=== PATIENT | female | born 1975 | race Caucasian/White ===

== ENCOUNTER 2020-03-07 16:13 | Emergency (ER) | payer BC, SELFPAY ==
[2020-03-07 16:50] VITALS: BP 133/64; PULSE 69; RESP 20; TEMP 36.7; O2SAT 98
--- NOTE | 2020-03-07 16:58 | HMH.EDUTC ---
[facility] Disposition Clinical Impression: Suspected COVID-19 virus infection Fever Qualifiers: Fever type: unspecified Qualified Code(s): R50.9 - Fever, unspecified Disposition: Home, Self-Care Condition on Discharge: Good Instructions: Preventing the Spread of Coronavirus Discharge Instructions Referrals: Martha Kearney [Primary Care Provider] - Forms: Work/School Release Time of Disposition: 17:01 Medical Decision Making - Agustin Inquiry Pt receiving controlled substance: No Vital Signs: 03/07/20 16:50 Temperature 98.1 F Temperature Source Oral Pulse Rate [Right Brachial] 69 Respiratory Rate 20 Blood Pressure [Right Arm] 133/64 Blood Pressure Mean [Right Arm] 87 Blood Pressure Source [Right Arm] Automatic Cuff Blood Pressure Position [Right Arm] Sitting 02 Sat by Pulse Oximetry 98 Oxygen Delivery Method Room Air Orders (Tests/Meds): ORDERS Category Date Time Status SARS-CoV-2, MATT Stat Lab 03/07/20 16:50 Ordered [facility] HPI - General Chief complaint: Urgent [facility] Stated complaint: covid test request Time Seen by Provider: 03/07/20 16:58 Mode of Arrival: Ambulatory Source of Information: Patient Limitations: No Limitations Description of Symptoms (Recalled from Triage Doc. by RN): fever HEENT Symptoms (Recalled from RN notes): No Resp Symptoms (Recalled from RN notes): No Skin Symptoms (Recalled from RN notes): No MS Symptoms (Recalled from RN notes): No Functional Status (Recalled from RN notes): none - History of Present Illness Provider Complaint: 44 yr old female presents for low grade fever 99.7 for 2 days. pt states no other symptoms - Related Data Previous Rx's Medication Instructions Recorded Etodolac [Etodolac 200mg Cap] 200 mg PO BID PRN #40 cap 02/09/18 Allergies Allergy/AdvReac Type Severity Reaction Status Date / Time No Known Allergies Allergy Verified 02/09/18 12:32 - Worker's Comp Is this a Worker's Comp case?: No [facility] History - Hepatitis A Screen Drug use history?: No High risk sexual behaviors?: No History of sexually transmitted infection?: No Currently employed?: No Childcare worker?: No Do you have indoor plumbing?: No Do you have electricity?: Yes Attestation statement:: This patient has been screened for Hepatitis A risk factors. I have reviewed the patient's past medical history: Yes Medical History: Reports:: Cancer Denies:: Diabetes Mellitus Type 1, Diabetes Mellitus Type 2, Internal Pacemaker, MRSA Other Surgeries: No: Pacemaker Amputation: No Fractures: No - Social History Smoking Status: Current every day smoker Tobacco Type: cigarettes # Packs/Day (cigarettes): 1 Alcohol Intake: never Occupational Status: employed ROS Obtained: Yes Systems reviewed as appropriate & no additional complaints - Constitutional Constitutional: Reports system reviewed and no additional complaints, except as docu, Reports fever(s) - Eyes Eyes: Reports system reviewed and no additional complaints, except as docu - ENT Ears, Nose, Mouth, and Throat: Reports system reviewed and no additional complaints, except as docu, Denies nasal congestion, Denies sore throat - Cardiovascular Cardiovascular: Reports system reviewed and no additional complaints, except as docu, Denies chest pain - Respiratory Respiratory: Yes system reviewed and no additional complaints, except as docu, No chest congestion - Gastrointestinal Gastrointestingal: Reports: system reviewed and no additional complaints, except as docu. Denies: nausea, vomiting - Musculoskeletal Musculoskeletal: Reports system reviewed and no additional complaints, except as docu, Denies joint pain - Integumentary/Breasts Skin/Breast: Reports system reviewed and no additional complaints, except as docu, Denies rash - Neurologic Neurologic: Reports system reviewed and no additional complaints, except as docu, Denies lack of coordination - Endocrine Endocrine: Reports
[2020-03-07 17:16] VITALS: BP 133/64; PULSE 69; RESP 20; TEMP 36.7; O2SAT 98
[2020-03-09 13:36] LABS: Covid-19 Nasal PCR Sendout Lex NOT DETECTED
== END 2020-03-07 17:20 | disposition home or self-care (01) ==
PROVIDERS: Emergency Provider Nurse Practitioner Family; PCP Nurse Practitioner Family
DX: Z20.828 Contact with and (suspected) exposure to other viral communicable diseases (principal); R50.9 Fever, unspecified; J45.909 Unspecified asthma, uncomplicated; F41.9 Anxiety disorder, unspecified; F17.210 Nicotine dependence, cigarettes, uncomplicated; Z85.41 Personal history of malignant neoplasm of cervix uteri
CPT/HCPCS: 99201; U0004

== ENCOUNTER 2020-05-07 18:33 | Emergency (ER) | payer BC, SELFPAY ==
[2020-05-07 18:40] VITALS: BP 128/84; PULSE 76; RESP 16; TEMP 37.1; O2SAT 99; BMI 29.8
--- NOTE | 2020-05-07 18:59 | CT_ITS ---
PROCEDURE: CT ABDOMEN PELVIS W CON CLINICAL INDICATION: abd pain Lower abdominal pain COMPARISON: No exams were available for comparison TECHNIQUE: IV Contrast: 75ML OPTIRAY 350 Oral Contrast None Axial images obtained with sagittal and coronal reformats. All CT scans at the facility use one or more dose reduction, viz: automated exposure control, ma/kV adjustment per patient size (including targeted exams where dose is matched to indication, i.e. head), or iterative reconstruction technique. FINDINGS: LOWER THORAX: Minimal atelectatic or fibrotic change in the left lung base. There is some asymmetric density in the lateral aspect of the right breast. Suggest mammogram and possibly ultrasound for further evaluation ABDOMEN & PELVIS: Prior cholecystectomy. The liver, the spleen, adrenal glands, pancreas, and kidneys have an unremarkable appearance. No intestinal obstruction or free air. No evidence of appendicitis. No pelvic mass or abnormal fluid collection. No evidence of diverticulitis. There are tubal ligation clips present in the left adnexa and along the anterior aspect of the uterus. The uterus has a somewhat heterogeneous density with a hyperdensity along the uterine fundus at 11 mm. No acute bony anomaly. IMPRESSION: 1. Nonspecific uterine nodularity with heterogeneous density of the uterus. Fibroid involving is considered and pelvic ultrasound may confirm. 2. No acute abdominal findings. 3. Asymmetric breast density on the right. Mammography and ultrasound may provide further evaluation. Dictated by: Aryan Fields MD 05/08/2020 06:02 Aryan Fields MD in [place] 05/08/2020 06:02
[2020-05-07 19:04] VITALS: BP 122/87; PULSE 75; RESP 20; O2SAT 96
[2020-05-07 19:04] LABS: Microscopic, Urine URINE MICROSCOPIC (MICROSCOPIC)
[2020-05-07 19:07] LABS: Appearance,Urine CLEAR (Clear); Bilirubin,Urine Negative (Negative); Blood, Urine 3+ (Negative); Color,Urine YELLOW (Yellow); Glucose,Urine (UA) Negative (Negative); Ketones,Urine Negative (Negative); Leukocyte Esterase,Urine Negative (Negative); Nitrate,Urine Negative (Negative); Protein,Urine Negative (Negative); Urobilinogen,Urine 0.2 EU/dl (0.2)
--- NOTE | 2020-05-07 19:08 | PC.NURSE ---
received report from day nurse
[2020-05-07 19:15] LABS: Urine Pregnancy, HCG Qual. Negative (Negative)
[2020-05-07 19:32] VITALS: BP 137/88; PULSE 71; RESP 16; O2SAT 97
--- NOTE | 2020-05-07 19:34 | HMH.EDGENADL ---
ED Disposition Condition on Discharge: Good - Critical Care Critical Care Time: No <Peterson Rollins - Last Filed: 05/07/20 20:13> <Jared Lopez - Last Filed: 05/07/20 21:00> Clinical Impression: Epigastric abdominal pain, Periumbilical abdominal pain Disposition: Home, Self-Care Instructions: DI for Acute Pain -- Adult Additional Instructions: call pcp in am Referrals: Martha Kearney [Primary Care Provider] - Attestation: On 05/07/20, the high probability of a clinically significant, sudden or life threatening deterioration of the following system(s) required my full and direct attention, intervention and personal management. The time I documented below is in addition to time spent performing reported procedures but includes the following listed in this critical care notation. Medical Decision Making - Agustin Inquiry Pt receiving controlled substance: No Reference #:: [id number] Comment: 0 rxs. - Lab Data Result diagrams: 05/07/20 18:55 05/07/20 18:55 <Peterson Rollins - Last Filed: 05/07/20 20:13> - Lab Data Lab results reviewed: Yes: I reviewed the patient's lab results. Result diagrams: 05/07/20 18:55 05/07/20 18:55 - CT Data CT Scan: Abdomen, Pelvis Time Received: 20:[address] Reviewed: Yes: I have viewed the radiologist's interpretation Preliminary Findings: Normal/NAD <Jared Loepz Estrellita - Last Filed: 05/07/20 21:00> Vital Signs: 05/07/20 18:40 05/07/20 19:04 05/07/20 19:32 Temperature 98.8 F Temperature Source Oral Pulse Rate [Right Radial] 76 75 71 Respiratory Rate 16 20 16 Blood Pressure [Right Arm] 128/84 122/87 137/88 Blood Pressure Mean [Right Arm] 98 98 104 Blood Pressure Source [Right Arm] Automatic Cuff Automatic Cuff Blood Pressure Position [Right Arm] Sitting Sitting 02 Sat by Pulse Oximetry 99 96 97 Oxygen Delivery Method Room Air Room Air 05/07/20 20:37 Temperature Temperature Source Pulse Rate [Right Radial] 73 Respiratory Rate 18 Blood Pressure [Right Arm] 118/75 Blood Pressure Mean [Right Arm] 89 Blood Pressure Source [Right Arm] Blood Pressure Position [Right Arm] 02 Sat by Pulse Oximetry 98 Oxygen Delivery Method Room Air - Lab Data Lab Results 05/07/20 18:50: Urine Color Yellow, Urine Appearance Clear, Urine pH 7.0, Ur Specific [place] 1.010, Urine Protein Negative, Urine Glucose (UA) Negative, Urine Ketones Negative, Urine Blood 3+, Urine Nitrate Negative, Urine Bilirubin Negative, Urine Urobilinogen 0.2, Ur Leukocyte Esterase Negative, Urine RBC 10-20, Ur Squamous Epith Cells 5-10 05/07/20 18:50: Urine HCG, Qual Negative 05/07/20 18:55: WBC 10.8, RBC 4.35, Hgb 14.3, Hct 40.6, MCV 93.3, MCH 32.9 H, MCHC 35.3, RDW 13.0, Plt Count 278, MPV 8.8, Neut % (Auto) 64.4, Lymph % (Auto) 29.5, [place] % (Auto) 4.9, Eos % (Auto) 0.7, Baso % (Auto) 0.5, Neut # (Auto) 6.9, Lymph # (Auto) 3.2, [place] # (Auto) 0.5, Eos # (Auto) 0.1, Baso # (Auto) 0.1 05/07/20 18:55: Sodium 142, Potassium 3.9, Chloride 103, Carbon Dioxide 32 H, Anion Gap 10.9, BUN 11, Creatinine 0.60, Estimated Creat Clear 152, Estimated GFR 110, Est GFR ( Amer) 133, Glucose 104 H, Calcium 10.2, Total Bilirubin 0.3, AST 28, ALT 20, Alkaline Phosphatase 78, Total Protein 8.5 H, Albumin 4.8, Globulin 3.7 H, Albumin/Globulin Ratio 1.3 05/07/20 18:55: Amylase 69, Lipase 119 Orders (Tests/Meds): ED MEDICATIONS Discontinued Medications Generic Name Dose Route Start Last Admin Trade Name Freq PRN Reason Stop Dose Admin Ioversol 75 ml 05/07/20 20:05 05/07/20 20:07 Rad-Optiray 350 100ml Vial IV 05/07/20 20:06 75 ml ONCE ONE Administration Protocol Ketorolac Tromethamine 30 mg 05/07/20 20:04 05/07/20 20:07 Toradol 30mg/Ml Vial IV 09/27/20 20:05 30 mg ONCE ONE Administration Sodium Chloride 10 ml 05/07/20 20:05 05/07/20 20:07 Rad-Saline Flush 10ml Syringe IV 05/07/20 20:06 10 ml ONCE ONE Administration ORDERS Category Date Time S
[2020-05-07 19:52] LABS: Basophils # 0.1 K/mm3 (0-0.2); Basophils % 0.5 % (0.1-2.0); Eosinophils # 0.1 K/mm3 (0.0-0.4); Eosinophils % 0.7 % (0.1-12.0); Hematocrit 40.6 % (37.0-47.0); Hemoglobin 14.3 g/dL (12.2-16.2); Lymphocytes # 3.2 K/mm3 (0.7-4.5); Lymphocytes % 29.5 % (10-50); Mean Corpuscular HGB Conc 35.3 g/dL (31.8-35.4); Mean Corpuscular Hemoglobin 32.9 pg (27.0-31.2); Mean Corpuscular Volume 93.3 fl (81-99); Mean Platelet Volume 8.8 fl (7.4-10.4); Monocytes # 0.5 K/mm3 (0.1-1.0); Monocytes % 4.9 % (1.7-9.3); Neutrophils # 6.9 K/mm3 (1.8-7.8); Neutrophils % 64.4 % (37.0-80.0); Platelet Count 278 K/mm3 (142-424); Red Blood Count 4.35 M/mm3 (4.20-5.40); White Blood Count 10.8 K/mm3 (4.8-10.8)
[2020-05-07 19:59] LABS: Alanine Aminotransferase 20 U/L (12-78); Albumin Level 4.8 g/dl (3.5-5.0); Albumin/Globulin Ratio 1.3 (1.1-1.8); Alkaline Phosphatase 78 U/L (38-126); Anion Gap 10.9 mEq/L (5-15); Aspartate Amino Transferase 28 U/L (14-36); Bilirubin,Total 0.3 mg/dl (0.2-1.3); Blood Urea Nitrogen 11 mg/dl (7-17); Calcium 10.2 mg/dl (8.4-10.2); Carbon Dioxide 32 mmol/L (22.0-30.0); Chloride 103 mmol/L (98-107); Creatinine Clearance Estimated 152 mL/min (50-200); Estimated Glomerular Filt Rate 110 ml/min (>60); GFR (African American) 133 ML/MIN (>60); Globulin 3.7 g/dL (1.3-3.2); Glucose 104 mg/dl (74-100); Potassium 3.9 mmoL/L (3.5-5.1); Sodium 142 mmol/L (136-145); Total Protein,Serum 8.5 g/dl (6.3-8.2)
[2020-05-07 20:09] LABS: Amylase 69 U/L (30-110); Lipase 119 U/L (23-300)
[2020-05-07 20:37] VITALS: BP 118/75; PULSE 73; RESP 18; O2SAT 98
[2020-05-07 21:02] VITALS: BP 122/79; PULSE 68; RESP 17; TEMP 37.1; O2SAT 98
== END 2020-05-07 21:11 | disposition home or self-care (01) ==
PROVIDERS: Emergency Provider Emergency Medicine; PCP Nurse Practitioner Family
DX: R10.33 Periumbilical pain (principal); R10.13 Epigastric pain; Z79.899 Other long term (current) drug therapy
CPT/HCPCS: 74177; 80053; 81001; 81025; 82150; 83690; 85025; 96375; 99284; Q9967

== ENCOUNTER 2022-09-06 18:40 | Emergency (ER) | payer BC, SELFPAY ==
[2022-09-06 18:41] VITALS: BP 132/80; PULSE 93; RESP 20; TEMP 36.5; O2SAT 98; BMI 31.5
--- NOTE | 2022-09-06 19:02 | EXP.UTC ---
Discharge Plan Disposition Patient Disposition: Home, Self-Care Condition: Good Prescriptions Prescriptions: New prednisone [prednisone] 20 mg tablet 20 mg PO BID 5 Days Qty: 10 0RF amoxicillin-pot clavulanate 875-125 mg Tablet 1 tab PO Q12H Qty: 20 0RF No Action fluconazole 100 MG tablet 100 mg PO DAILY venlafaxine 75 MG tablet 75 mg PO DAILY omeprazole 20 MG capsule,delayed release(DR/EC) 20 mg PO DAILY cephalexin 500 MG tablet 500 mg PO QID duloxetine 30 MG capsule,delayed release(DR/EC) 30 mg PO BID Referrals Follow up/Referrals: Claudine Marcus APRN [Primary Care Provider] - See instructions Activity Restrictions/Add. Instructions Additional Instructions/Restrictions: Take all medicine as directed until gone Clinical Impressions Clinical Impression: Otitis media Instructions Patient Instructions: DI for Otitis Media (Middle Ear Infection)-Child Discharge ED Provider: Ericka Mccabe [facility] HPI General Stated complaint: sore throat, bilateral ear pain Mode of Arrival: Ambulatory Source of Information: Patient Limitations: No Limitations Time Seen by Provider: 09/06/22 19:17 Description of Symptoms (Recalled from Triage Doc. by RN): both ears hurtung, sore throat HEENT Symptoms (Recalled from RN notes): Yes Resp Symptoms (Recalled from RN notes): No Skin Symptoms (Recalled from RN notes): No MS Symptoms (Recalled from RN notes): No Functional Status (Recalled from RN notes): n/a History of Present Illness Provider Complaint: Congestion, bilateral ear pain, sore throat X 1 week. No fever. Feeling much worse today than she has been. Onset (ago): week(s) (1) Relieving factors: none Exacerbating factors: none Associated symptoms: denies other symptoms Treatments prior to arrival: none Related Data Home Medications Medication Instructions Recorded Confirmed cephalexin 500 mg tablet 500 mg PO QID Infection 05/07/20 05/07/20 duloxetine 30 mg capsule,delayed 30 mg PO BID . 05/07/20 05/07/20 release fluconazole 100 mg tablet 100 mg PO DAILY yeast 05/07/20 05/07/20 omeprazole 20 mg capsule,delayed 20 mg PO DAILY GERD 05/07/20 05/07/20 release venlafaxine 75 mg tablet 75 mg PO DAILY . 05/07/20 05/07/20 Previous Rx's Medication Instructions Recorded amoxicillin 875 mg-potassium 1 tab PO Q12H #20 tabs 09/06/22 clavulanate 125 mg tablet prednisone 20 mg tablet 20 mg PO BID 5 days #10 tabs 09/06/22 Allergies Allergy/AdvReac Type Severity Reaction Status Date / Time No Known Allergies Allergy Verified 09/06/22 19:00 Worker's Comp Is this a Worker's Comp case?: No [facility] Disclaimer: The information contained in this section may have been updated after the patient was seen, as this information can be updated by other users. Social History Smoking Status: Current every day smoker tobacco type: cigarettes packs per day: 1 alcohol intake: never current occupational status: other Travel in the last 8 weeks: None caffeine: Yes ROS Obtained: Yes All systems reviewed & no additional complaints except as documented Constitutional Constitutional: Reports malaise ENT Ears, Nose, Mouth, and Throat: Reports otalgia, Reports nasal congestion and Reports sore throat Physical Exam General General appearance: alert and in no apparent distress Head Head exam: atraumatic, normocephalic and normal inspection Eye Eye exam: Present normal appearance, PERRL and EOMI ENT ENT exam: Present normal exam, normal oropharynx, mucous membranes moist and normal external ear exam Expanded ENT Exam TM/Canal exam: Bilateral TM: erythema, bulging and effusion Nose exam: Present sinus tenderness Throat exam: Present tonsillar erythema Neck Neck exam: Present normal inspection, full ROM and trachea midline; Absent meningismus or lymphadenopathy Chest Chest inspection: Present normal inspection and symmetric chest wall rise; Absent ten
[2022-09-06 19:05] LABS: UTC Strep Screen (Rapid) Negative (Negative)
[2022-09-06 20:01] VITALS: BP 132/80; PULSE 93; RESP 20; TEMP 36.5; O2SAT 98
== END 2022-09-06 20:00 | disposition home or self-care (01) ==
PROVIDERS: Emergency Provider Physician Assistant; PCP Nurse Practitioner
DX: H66.90 Otitis media, unspecified, unspecified ear (principal)
CPT/HCPCS: 87880; 96372; 99212; 99213; G0463; J0696

== ENCOUNTER 2023-06-12 20:49 | Emergency (ER) | payer BC, SELFPAY ==
[2023-06-12 20:50] VITALS: BP 154/96; PULSE 94; RESP 20; TEMP 37.2; O2SAT 100; BMI 31.2
--- NOTE | 2023-06-12 20:57 | HMH.EDGENADL ---
Discharge Plan Disposition Patient Disposition: Home, Self-Care Prescriptions Prescriptions: New prednisone 50 mg tablet 50 mg PO DAILY 3 Days Qty: 3 0RF epinephrine 0.3 mg/0.3 mL auto-injector 0.3 mg IM Q10M PRN (Reason: anaphylaxis) Qty: 2 0RF Rx Instructions: for 2 doses, use as directed No Action prednisone [prednisone] 20 mg tablet 20 mg PO BID 5 Days Qty: 10 0RF amoxicillin-pot clavulanate 875-125 mg Tablet 1 tab PO Q12H Qty: 20 0RF fluconazole 100 MG tablet 100 mg PO DAILY venlafaxine 75 MG tablet 75 mg PO DAILY omeprazole 20 MG capsule,delayed release(DR/EC) 20 mg PO DAILY cephalexin 500 MG tablet 500 mg PO QID duloxetine 30 MG capsule,delayed release(DR/EC) 30 mg PO BID Referrals Follow up/Referrals: Claudine Marcus APRN [Primary Care Provider] - See instructions Activity Restrictions/Add. Instructions Additional Instructions/Restrictions: At this time it was felt you are safe to be discharged home. If new or worsening symptoms please do not hesitate to return the emergency department. Please take your medication as prescribed. If you get stung by bee and have shortness of breath and rash please use your EpiPen as the package directs. Clinical Impressions Clinical Impression: Bee sting, Allergic reaction Discharge ED Provider: Luis M Fuller General Adult HPI General Chief complaint: Allergic Reaction Stated complaint: bee sting, LT hand swelling red Time Seen by Provider: 06/12/23 20:51 History of Present Illness HPI narrative: Patient is a 47-year-old with past medical history of bee allergy who presents emergency department for evaluation of a bee sting. Patient was stung at approximately 5 PM on the proximal medial finger, since then she has had swelling and erythema along the dorsal aspect of the hand, limited ability to flex the digits of the hand with increasing erythema causing her to present here for continued evaluation. Patient has taken an unknown oral antihistamine earlier today. No rash, no shortness of breath, no vomiting or diarrhea, no other acute complaints at this time. Related Data Home Medications Medication Instructions Recorded Confirmed cephalexin 500 mg tablet 500 mg PO QID Infection 05/07/20 05/07/20 duloxetine 30 mg capsule,delayed 30 mg PO BID . 05/07/20 05/07/20 release fluconazole 100 mg tablet 100 mg PO DAILY yeast 05/07/20 05/07/20 omeprazole 20 mg capsule,delayed 20 mg PO DAILY GERD 05/07/20 05/07/20 release venlafaxine 75 mg tablet 75 mg PO DAILY . 05/07/20 05/07/20 Previous Rx's Medication Instructions Recorded amoxicillin 875 mg-potassium 1 tab PO Q12H #20 tabs 09/06/22 clavulanate 125 mg tablet prednisone 20 mg tablet 20 mg PO BID 5 days #10 tabs 09/06/22 epinephrine 0.3 mg/0.3 mL 0.3 mg (0.3 mL) IM Q10M PRN 06/12/23 injection, auto-injector anaphylaxis #2 ea prednisone 50 mg tablet 50 mg PO DAILY 3 days #3 tabs 06/12/23 Allergies Allergy/AdvReac Type Severity Reaction Status Date / Time No Known Allergies Allergy Verified 09/06/22 19:00 [facility] Disclaimer: The information contained in this section may have been updated after the patient was seen, as this information can be updated by other users. Social History Smoking Status: Current every day smoker tobacco type: cigarettes packs per day: 1 alcohol intake: never current occupational status: other Travel in the last 8 weeks: None caffeine: Yes ROS Obtained: Yes Systems reviewed as appropriate & no additional complaints except as documented Physical Exam General General appearance: alert and in no apparent distress Head Head exam: atraumatic and normocephalic Eye Eye exam: Present PERRL and EOMI ENT ENT exam: Present mucous membranes moist Neck Neck exam: Present normal inspection Chest Chest inspection: Present normal inspection and symmetric chest wall rise Respiratory Respiratory
[2023-06-12 21:15] VITALS: BP 119/79; PULSE 69; O2SAT 96
[2023-06-12 21:30] VITALS: BP 130/84; PULSE 71; O2SAT 98
[2023-06-12 22:00] VITALS: BP 118/71; PULSE 66; O2SAT 99
[2023-06-12 22:13] VITALS: BP 118/71; PULSE 66; RESP 17; TEMP 36.7; O2SAT 99
== END 2023-06-12 22:20 | disposition home or self-care (01) ==
PROVIDERS: Emergency Provider Emergency Medicine; PCP Nurse Practitioner
DX: T63.441A Toxic effect of venom of bees, accidental (unintentional), initial encounter (principal); R22.32 Localized swelling, mass and lump, left upper limb; F17.210 Nicotine dependence, cigarettes, uncomplicated
CPT/HCPCS: 96374; 96375; 99284